=== PATIENT | female | born 1960 | race Caucasian/White ===

== ENCOUNTER 2021-12-06 18:30 | Inpatient (IN) | payer BC ==
[~2021-12-06] VITALS: Ht 170.2 cm; Wt 89.4 kg
[~2021-12-06 18:30] MED LIST: ANTIVERT 25MG T25 MG PO; CLARITIN 10MG T10 MG PO; CREON DR 12,001 EACH PO; CYCLOBENZAPRINE10 MG PO; EFFEXOR XR150 MG PO; FAMOTIDINE20 MG PO; FLUVOXAMINE MA100 MG PO; IMODIUM CAP 2 MG2 MG PO; LOPRESSOR 25 MG25 MG PO; LUVOX TAB 100100 MG PO; MAG-OX 400 TAB400 MG PO; MAGNESIUM OXID400 M1 PO; MAGOX 400400 MG PO; MELATONIN3 MG PO; METOPROLOL TART50 MG PO; SEROQUEL100 MG PO; SINGULAIR10 MG PO; TAB-A-VITE1 EACH PO; THERAGRAN M TAB1 EA PO; VALIUM2 MG PO; VENLAFAXINE HC150 MG PO; VENLAFAXINE HCL75 M1 PO; VIBRAMYCIN100 MG PO; VISTARIL25 MG PO; VITAMIN B-1100 M1 PO; ZESTRIL40 MG PO; ZOFRAN4 MG PO
[2021-12-06 19:33] LABS: RED BLOOD COUNT 3.75 M/UL (4.00-5.10); WHITE BLOOD COUNT 10.7 K/UL (4.5-11.0)
[2021-12-06 20:29] LABS: BUN/CREATININE RATIO 38 (0-10)
[2021-12-07] MEDS ORDERED: TRAZODONE HCL150 MG PO (03:35)
[2021-12-07] MEDS ORDERED: CLARITIN10 MG PO (03:36)
[2021-12-07] MEDS ORDERED: VENLAFAXINE HC150 MG PO (03:37)
[2021-12-07] MEDS ORDERED: LUVOX TAB 100100 MG PO (03:37)
[2021-12-07 04:58] LABS: HEMOGLOBIN 11.2 gm/dl (12.3-15.3); RED BLOOD COUNT 3.48 M/UL (4.00-5.10); WHITE BLOOD COUNT 8.2 K/UL (4.5-11.0)
[2021-12-07 05:23] LABS: BUN/CREATININE RATIO 33 (0-10)
[2021-12-07] MEDS ORDERED: HYDROXYZINE HCL50 MG PO (08:57)
[2021-12-07] MEDS ORDERED: CREON DR 12,001 EACH PO (10:08)
[2021-12-08 05:33] LABS: HEMOGLOBIN 9.6 gm/dl (12.3-15.3)
[2021-12-08 05:49] LABS: RED BLOOD COUNT 2.95 M/UL (4.00-5.10); WHITE BLOOD COUNT 5.8 K/UL (4.5-11.0)
[2021-12-08 05:57] LABS: BUN/CREATININE RATIO 32 (0-10)
--- NOTE | 2021-12-11 13:45 | NUR ---
REPORT CALLED TO DOLLY WITH [facility].
--- NOTE | 2021-12-11 14:10 | NUR ---
PHYSICAL THERAPY ASSISTED PATIENT TO CHAIR IN ROOM. PATIENT IS X1 ASSIST.
--- NOTE | 2021-12-11 14:40 | NUR ---
PATIENT STATED SHE HAD NO MORE REFILLS OF HER HOME MEDICATION. RN NOTIFIED DR. LA AND SHE TOLD RN TO TELL PATIENT TO FOLLOW UP WITH HER PRIMARY CARE PHYSICIAN. RN TOLD PATIENT TO FOLLOW UP WITH HER PRIMARY CARE PHYSICIAN AND WENT OVER DISCHARGE PAPERWORK. RN ALSO CALLED PATIENT'S [id number] FOR TRANSPORT AND ALSO WENT OVER DISCHARGE INFORMATION WITH HER WELL. [id number] MADE AWARE TO CALL PRIMARY CARE PHYSICIAN FOR MEDICATION CONCERNS AND THAT [facility] WOULD SEE PATIENT AT HOME. [id number] JJ VERBALIZED UNDERSTANDING.
== END 2021-12-11 17:30 | disposition home health service (06) | DRG 439 ==
LOC: ER1 18:30 → CCU 12-07 00:55 → CDU 12-07 00:55 → CCU 12-07 03:36 → M/S 12-09 22:29
PROVIDERS: Internal Medicine Infectious Disease; Student in an Organized Health Care Education/Training Program; ADMIT Internal Medicine
DX: K85.20 Alcohol induced acute pancreatitis without necrosis or infection (principal); S32.018A Other fracture of first lumbar vertebra, initial encounter for closed fracture; M87.852 Other osteonecrosis, left femur; M87.851 Other osteonecrosis, right femur; E87.2 Acidosis; F10.231 Alcohol dependence with withdrawal delirium; N30.00 Acute cystitis without hematuria; K76.6 Portal hypertension; Z20.822 Contact with and (suspected) exposure to COVID-19; I10 Essential (primary) hypertension; F41.8 Other specified anxiety disorders; D47.2 Monoclonal gammopathy; K27.9 Peptic ulcer, site unspecified, unspecified as acute or chronic, without hemorrhage or perforation; K21.00 Gastro-esophageal reflux disease with esophagitis, without bleeding; K76.0 Fatty (change of) liver, not elsewhere classified; F60.5 Obsessive-compulsive personality disorder; K29.80 Duodenitis without bleeding; K29.70 Gastritis, unspecified, without bleeding; L89.329 Pressure ulcer of left buttock, unspecified stage; L89.319 Pressure ulcer of right buttock, unspecified stage; K70.30 Alcoholic cirrhosis of liver without ascites; K86.1 Other chronic pancreatitis; E16.2 Hypoglycemia, unspecified; E83.42 Hypomagnesemia; R00.0 Tachycardia, unspecified; Z79.899 Other long term (current) drug therapy; Z90.710 Acquired absence of both cervix and uterus; Z98.890 Other specified postprocedural states; Z82.49 Family history of ischemic heart disease and other diseases of the circulatory system
CPT/HCPCS: 0240U; 36415; 71045; 80053; 80307; 81001; 82550; 82553; 82962; 83605; 83690; 83735; 84100; 84132; 84439; 84443; 84484; 85025; 85027; 85379; 85610; 85730; 87040; 87086; 93005; 96365; 96375; 96376; 97110; 97161; 97530; 99285; C9113; G0480; J0696; J1650; J2060; J2405; J2543; J3411; J3475; J7030; J7042; Q9967